=== PATIENT | female | born 1930 | race Caucasian/White ===

== ENCOUNTER 2017-01-11 12:38 | Inpatient (IN) | payer MEDICARE, OTHER ==
[2017-01-11] VITALS (13 sets, daily range): BP systolic 140–196; BP diastolic 63–137; PULSE 60–80; RESP 17–48; O2SAT 86–97
[~2017-01-11] VITALS: Ht 165.1 cm; Wt 126.4 kg
[~2017-01-11 12:38] MED LIST: Albuterol/Ipratropium NEB; CHOL10002 PO; CUB500I IV; DILT120C10 PO; DONE5TAB4 PO; FURO-129 PO; LEVO137T2 PO; LOV100 SUBQ; NITR0.4T6 SL; OMEP-113 PO; POTA20TA7 PO; TRAM50TA2 PO; WARF5TAB7 PO; [UNRECOGNIZED DRUG - CODE] PO
--- NOTE | 2017-01-11 12:54 | ED.REPORT ---
HPI-Dyspnea / Wheezing Date of Service Jan 11, 2017 ED Provider: Asael Oh MD Patient is an 86 year old female anticoagulated on Warfarin with a history of PE , CHF and hypertension who presents to the ED due to shortness of breath onset yesterday. 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 The patient denies chest pain or any other complaints at this time. History of similar symptoms with prior PE. Nursing Notes Stated Complaint: SHORTNESS OF BREATH Chief Complaint: Respiratory Complaints Nursing Notes Reviewed: Yes Allergies: Coded Allergies: Sulfa (Sulfonamide Antibiotics) (Verified Allergy, Severe, Hives, 01/11/17) Shellfish (Verified Adverse Reaction, Mild, Hives, 01/11/17) Scheduled Calcium Carbonate/Vitamin D3 (Calcium 500 + Vit D Caplet) 1 Each Tablet 1 EACH PO DAILY Cyanocobalamin (Vitamin B-12) (Vitamin B-12) 1,000 Mcg Tablet 1,000 MCG PO DAILY Diltiazem ER (Diltiazem ER) 120 Mg Cap.er.12h 120 MG PO BID Donepezil (Aricept) 5 Mg Tablet 10 MG PO HS Fluticasone Propionate (Fluticasone Propionate Nasal) 16 Gm [place].susp 1 SPRAY NA BID Furosemide (Furosemide) 40 Mg Tablet 40 MG PO BID Levothyroxine (Levothyroxine) 200 Mcg Tablet 200 MG PO DAILY Nitroglycerin SL (Nitroglycerin SL) 0.4 Mg Tab.subl 0.4 MG SL DAILY Potassium Chloride ER (Klor-Con M10) 10 Meq Tablet 10 MEQ PO BID Pravastatin (Pravastatin) 80 Mg Tablet 80 MG PO DAILY Warfarin Sodium (Warfarin Sodium) 5 Mg Tablet 7.5 MG PO M,T,,F,SUN Warfarin Sodium (Coumadin) 5 Mg Tablet 10 MG PO W,SAT Scheduled PRN Nitroglycerin SL (Nitroglycerin SL) 0.4 Mg Tab.subl 0.4 MG SL Q5MIN PRN PRN For Chest Pain Tramadol (Tramadol) 50 Mg Tablet 50 MG PO Q6 PRN PRN For Pain General Time Seen by MD: 12:50 Chief Complaint Shortness of breath Hx Obtained From: Patient, Other family... Arrived By: Walk-in Sudden in Onset?: Yes Onset Occurred: 1 day ago Symptom Duration: Since onset Location: : None Recent Healthcare: No recent hospitalization, Recent doctor visit Similar Sx Previous: Yes Past Medical History Past Medical History hypothyroid Cataracts atrial fibrillation congestive heart failure GERD hypertension PE Reports: Stroke Past Surgical History Reports: Appendectomy, Cholecystectomy, Hysterectomy Reports: Knee replacement, Pacemaker insertion Smoking History Never Smoker Social History Alcohol Use: "Social" Drug Use: Denies drug use Ambulatory Status Independent Review of Systems Constitutional: Denies: Chills, Fever Respiratory: Reports: Non-productive cough, Shortness of breath, Wheezing Cardiovascular: Denies: Chest pain Musculoskeletal: Denies: Extremity pain, Extremity swelling Complete sys rev & neg: except as marked. Physical Exam Initial Vital Signs Vital Signs (First) Date Time Temp Pulse Resp B/P Pulse Ox O2 Delivery O2 Flow Rate FiO2 01/11/17 12:41 36.4 60 48 169/80 92 Room Air 01/11/17 13:06 21 Initial VS: Reviewed General/Constitutional: Awake, Alert Neck: Supple, Full range of motion Resp Distress / Stridor: Positive: Resp distress moderate speaking in full sentences wheezes bilateral coarse breath sounds Cardiovascular: Heart rate NL, Regular rhythm, Heart sounds NL ENT: Airway patent, Mucous membranes moist Abdomen: Soft, Non-tender Skin: Atraumatic, Color NL, No rash, Warm, Dry Neurologic: Oriented X3, Speech NL, No motor deficits, No sensory deficits Head / Eyes: Normocephalic, PERRL, EOMI Psychiatric: Affect NL, Mood NL Interpretation & Diagnostics Lab Results Interpretation Result Diagram: 01/11/17 1255 01/11/17 1255 Test 01/11/17 12:50 01/11/17 12:55 01/11/17 15:10 Hold Escobar Top Tube Received (Received) White Blood Count 6.9th/mm3 (3.8-10.1) Red Blood Count 5.58mil/mm3 (3.90-5.20) Hemoglobin 16.4g/dL (12.0-15.6) Hematocrit 50.3% (35.0-46.0) Mean Corpuscular Volume 90.1fL (81-100) Mean Corpuscular Hemoglobin 29.4pg (27.0-35.0) Mean Corpuscular Hemoglobin Concent 32.6% (32.0-37.0) Red Cell Distribution Width 14.9% (12.3-15.4) Platelet Count 194bil/L (150-400) Neutrophils (%) (Auto) 70.1% (40-74) Lymphocytes (%) (Auto) 17.6% (14-46) Monocytes (%) (Auto) 11.1% (4-12) Eosinophils (%) (Auto) 0% (0-5) Basophils (%) (Auto) 0.9% (0-3) Prothrombin Time 18.5sec (8.1-12.5) Prothromb Time International Ratio 1.71ratio Activated Partial Thromboplast Time 32.3sec (22.8-33.0) Sodium Level 139mEq/L (134-144) Potassium Level 4.1mEq/L (3.5-5.2) Chloride Level 101mEq/L (97-108) Carbon Dioxide Level 20mmol/L (18-29) Blood Urea Nitrogen 19mg/dL (8-27) Creatinine 0.84mg/dL (0.57-1.00) Estimat Glomerular Filtration Rate 92mL/min (>59) Glucose Level 112mg/dL (60-99) Lactic Acid Level 2.4mmol/L (0.4-2.0) Calcium Level 9.5mg/dL (8.5-10.1) Total Bilirubin 0.5mg/dL (0.0-1.2) Aspartate Amino Transf (AST/SGOT) 32U/L (0-50) Alanine Aminotransferase (ALT/SGPT) 19U/L (0-32) Alkaline Phosphatase 63U/L (25-165) Troponin T < 0.010ug/L (0.0-0.011) Pro-B-Type Natriuretic Peptide 1708pg/mL (0-738) Total Protein 8.2g/dL (6.4-8.4) Albumin 3.6g/dL (3.4-5.0) ECG Interpretation ECG Interpretation: paced rhythm rate 60 Time: 12:56 Interpreted by: ED physician X-Ray Chest Interpretation Chest Xray Interpretation: IMPRESSION: Increasing left basilar airspace disease is suspicious for pneumonia. Atelectasis may also have this appearance. Dictated by: Isidro Munoz M.D. on 01/11/2017 at 12:37 Approved by: Isidro Munoz M.D. on 01/11/2017 at 12:47 View: Portable, 1 view Interpretation / Wet Read by: Interpret - Radiologist CT Chest Interpretation IMPRESSION: 1. No evidence of pulmonary emboli. 2. Prominent bronchial wall thickening and mild airspace disease within the infrahilar regions (right greater than left) is suspicious for developing pneumonia. 3. Cardiomegaly. 4. Small hiatal hernia. 5. Probable hepatic steatosis. Dictated by: Isidro Munoz M.D. on 01/11/2017 at 14:02 Approved by: Isidro Munoz M.D. on 01/11/2017 at 14:07 Study type: CT pulm angiogram Interpretation / Wet Read by: Interpret - Radiologist Re-Eval/Medical Decision Med Decision/Clinical Course 86-year-old female history of PE on Coumadin, pacemaker, atrial fibrillation presenting with cough and shortness breath 5 days. On arrival she was in moderate to severe respiratory distress. She was placed on BiPAP immediately and felt much better. CT shows bibasilar pneumonia. No evidence of PE. Patient has no risk factors for healthcare associated pneumonia. Her BNP is slightly elevated at 1100. Last echo EF 60 65%. Given Rocephin and azithromycin. Admitted to hospital. Source of Hx: Old records Re-Evaluation/Progress #1: Time of Eval: 13:14 Re-Evaluation/Progress Note: Rechecked patient whose condition is slightly improving. Re-Evaluation/Progress #2: Time of Eval: 14:05 Re-Evaluation/Progress Note: Rechecked patient. Discussed radiology results and diagnosis with patient. The patient understands and agrees to the plan for admittance. All questions were addressed. Consultation : Referral / Consult Name: Vaughn Busby MD Consulted With: Hospitalist Call Returned at: 15:19 Entertainer & Comic: Agrees with eval, Agrees with plan, Accepts admit Counseled Regarding: Diagnosis, Lab results, Need for admission Discharge & Departure Impression: Primary Impression: Pneumonia Additional Impression: Respiratory distress Disposition: ADMITTED TO HOSPITAL Discharge Condition All VS Reviewed: Yes Condition: Stable Referrals: Dai Lovell MD (PCP) Crit Care Except Billable Proc Time Spent: 30-74 minutes Services Performed: Patient management by me, Time spent at bedside, Reviewing test results, Reviewing imaging, Discussing patient care, Documentation in record Scribe Attestation Portions of this note were transcribed by Roseanne Helem and Mahesh Sigala. I, Dr. Oh personally performed the history, physical exam and medical decision-making; I reviewed and confirmed the accuracy of the information in the transcribed note. Signed by: Roseanne Carter and Mahesh Sigala, Scribe, and 15:14 copies to: Dai Lovell MD, Ben M MD Jan 11, 2017 12:54 Alexandra Carter Jan 11, 2017 13:03 MAHESH SIGALA Jan 11, 2017 14:12
[2017-01-11] MEDS ORDERED: Albuterol-Ipratropium 3 mL Inhalation Solution NEB ONE (12:55)
[2017-01-11 13:08] LABS: BASOPHILS % (AUTO) 0.9 % (0-3); EOSINOPHILS % (AUTO) 0 % (0-5); MONOCYTES % (AUTO) 11.1 % (4-12); Mean Corpuscular Hemoglobin 29.4 pg (27.0-35.0); Mean Corpuscular Volume 90.1 fL (81-100); NEUTROPHILS % (AUTO) 70.1 % (40-74); Platelet Count 194 bil/L (150-400)
--- NOTE | 2017-01-11 13:49 | DRSVH ---
PROCEDURE: X-RAY CHEST ONE VIEW, PORTABLE ([id number]) INDICATIONS: DYSPNEA TECHNIQUE: One view of the chest was acquired. COMPARISON: [facility], CR, XR CHEST 2VW, 01/05/2017, 14:54. FINDINGS: Surgical changes and devices: A cardiac defibrillator/pacer apparatus is noted overlying left chest. Lungs and pleura: Aeration of the lungs is similar to the prior study. However, there are increasing areas of linear consolidation within the left infrahilar region. No lobar consolidation, effusion, or pneumothorax is evident. Mediastinum: Mediastinal contours appear normal. Heart size is normal. Bones and chest wall: No suspicious bony lesions. Degenerative changes of the imaged spine and righ t shoulder are noted. Overlying soft tissues appear unremarkable. IMPRESSION: Increasing left basilar airspace disease is suspicious for pneumonia. Atelectasis may al so have this appearance. Dictated by: Isidro Munoz M.D. on 01/11/2017 at 12:37 Approved by: Isidro Munoz M.D. on 01/11/2017 at 12:47
[2017-01-11 13:58] LABS: INR 1.71 ratio
[2017-01-11 14:23] LABS: TROPONIN T < 0.010 ug/L (0.0-0.011)
[2017-01-11] MEDS ORDERED: cefTRIAXone Inj 2,000 MG in Dextrose 5% Minibag Plus 50 ML IV ONE (14:30)
[2017-01-11] MEDS ORDERED: Azithromycin Inj 500 MG in Dextrose 5% 250 ML IV ONE (14:30)
[2017-01-11] MEDS ORDERED: FLUT16SP (14:51)
[2017-01-11] MEDS ORDERED: CALC-78 PO (14:51)
[2017-01-11] MEDS ORDERED: FURO40TA4 PO (14:51)
[2017-01-11] MEDS ORDERED: LEVO200T6 PO (14:52)
[2017-01-11] MEDS ORDERED: NITR0.4T6 SL (14:54)
[2017-01-11] MEDS ORDERED: POTA10TA14 PO (14:54)
[2017-01-11] MEDS ORDERED: PRAV80TA2 PO (14:54)
[2017-01-11] MEDS ORDERED: CYAN10008 PO (14:57)
[2017-01-11] MEDS ORDERED: WARF5TAB PO (14:57)
--- NOTE | 2017-01-11 15:09 | DRSVH ---
PROCEDURE: CT ANGIO CHEST PULMONARY EMBOLISM ([id number]) INDICATIONS: dyspnea h/o PE TECHNIQUE: After the administration of intravenous contrast, 2 mm thick sections acquired from the pulmonary api justino to the posterior costophrenic angles. 3-dimensional maximum intensity projection (MIP) coronal a nd sagittal reformats were then acquired through the thorax. For radiation dose reduction, the follo wing was used: automated exposure control, adjustment of mA and/or kV according to patient size. COMPARISON: , CT, CT ANGIO CHEST PE, 02/02/2016, 14:47. , CT, CHEST ANGIO-PE, 04/04/2015, 18:48. FINDINGS: Image quality: Diagnostic. Pulmonary arteries: Pulmonary arteries are normal in size, and demonstrate no intraluminal filling d efects to suggest central pulmonary embolism. Lungs and pleura: Soft tissue prominence is noted within the perihilar regions bilaterally with corre sponding parabronchial wall thickening, which is more prominent within the right infrahilar region. Adjacent mild ground glass attenuation is noted within this region. A similar appearance to lesser d egree is noted within the left infrahilar region. No pneumothorax is evident. There is no large eff usion. Elevation of the right diaphragm is noted. Mediastinum: The heart is enlarged without a pericardial effusion, particularly noted involving the r ight atrium. Coronary artery atherosclerosis is present. No mediastinal masses present. There are small lymph nodes within the mediastinum. No gloria lymphadenopathy is evident. Small hilar lymph no ronnie are also present. The esophagus is normal in course and caliber and demonstrates a small hiatal hernia. Bones and chest wall: No suspicious bony lesions. Ribs and thoracic spine appear intact throughout. Prominent multilevel degenerative changes of the spine are present. Degenerative changes of the bi lateral shoulders are also noted. Thyroid gland is not enlarged. No axillary or supraclavicular ernst opathy. Abdomen: The imaged portions of the upper abdomen demonstrate a cyst involving the upper portion of t he right kidney which is unchanged since the previous exam and of doubtful significance. The liver i s somewhat hypodense when compared to the spleen. upper abdominal solid organs appear normal in the early arterial phase of enhancement. IMPRESSION: 1. No evidence of pulmonary emboli. 2. Prominent bronchial wall thickening and mild airspace disease within the infrahilar regions (righ t greater than left) is suspicious for developing pneumonia. 3. Cardiomegaly. 4. Small hiatal hernia. 5. Probable hepatic steatosis. Dictated by: Isidro Munoz M.D. on 01/11/2017 at 14:02 Approved by: Isidro Munoz M.D. on 01/11/2017 at 14:07
--- NOTE | 2017-01-11 15:29 | NUR ---
Admit nurse note Admission assessment completed in the ER with daughter's assistance. Per daughter pt. lives 2 doors down with her and is independent with assistance. She cooks for them and sets out their medications, and pt. has a [employer] service. Per daughter pt.'s memory "went downhill" after a "possible stroke" and she has been c/o increasing sob since having PE's several years ago. Pt. is scheduled for pulmonary function tests next week but has not dx or treatment at home at the present. "She and my dad got this cold and it's taking them down now." Pt. is sob at present. Pt. is high risk for sleep apnea, so protocol will be enacted upon arrival to unit. Pt. is currently on SP02 monitoring and oxygen. CHF booklet left in pt. room. Med rec completed per daughter's report. There is some question as to whether pt. is supposed to be on isosorbide mononitrate. It is on her PCP list; however, daughter states she has never had this medication. She just started daily nitroglycerin yesterday.
[2017-01-11 15:31] LABS: APPEARANCE,URINE HAZY (CLEAR,HAZY); COLOR,URINE YELLOW (YELLOW); OCCULT BLOOD,URINE MODERATE (NEGATIVE); UROBILINOGEN,URINE NORMAL (NORMAL)
[2017-01-11] MEDS ORDERED: Ondansetron 2 mg/mL 2 mL Inj IVPUSH PRN (15:45)
[2017-01-11] MEDS ORDERED: Alum-Mag Hydrox-Simeth 30 mL Suspension PO PRN ×2 (15:45→16:00)
[2017-01-11] MEDS ORDERED: 0.9% Sodium Chloride 1,000 ML IV SCH (15:57)
--- NOTE | 2017-01-11 15:57 | PCM.HPMED ---
Subjective Date of Service Jan 11, 2017 Primary Provider: Admitting Physician: Vaughn Busby MD Primary Care Physician: Dai Lovell MD Attending Physician: Vaughn Busby MD Admit Status: From the Emergency Department, Full Admit, [facility] Telemetry Chief Complaint: Pneumonia and acute respiratory failure with hypoxia. History of Present Illness: This is a pleasant 86-year-old female who has had chronic dyspnea primarily on exertion for several months. She has been ill for 4 days with more subacute dyspnea both at rest and with exertion. She has had a cough primarily dry. No fevers or chills. She has had a lot of fatigue as well. She came to the ER today was found to have a left lower lobe infiltrate started on antibiotics. She also had evidence of acute respiratory failure with hypoxia which required BiPAP in the ED. She denies any diaphoresis. No chest pain or palpitations. She has her chronic low-level leg edema which is not worse lately. No recent missed medications, no palpitations or orthopnea. She has had pneumonia vaccine series. She denies pleuritic chest pain. Does not take oxygen at home. She denies a history of smoking, COPD, or asthma. She was noted to have a subtherapeutic pro time today but a CT abdomen was negative for pulmonary embolism. Review of Systems: She denies difficulty with urination, constipation or diarrhea. No abdominal pain or dyspepsia. Also reviewed and otherwise negative except as noted in history of present illness. Allergies Coded Allergies: Sulfa (Sulfonamide Antibiotics) (Verified Allergy, Severe, Hives, 01/11/17) Shellfish (Verified Adverse Reaction, Mild, Hives, 01/11/17) Home Medications Calcium Carbonate/Vitamin D3 (Calcium 500 + Vit D Caplet) 1 Each Tablet 1 EACH PO DAILY Cyanocobalamin (Vitamin B-12) (Vitamin B-12) 1,000 Mcg Tablet 1,000 MCG PO DAILY Diltiazem ER (Diltiazem ER) 120 Mg Cap.er.12h 120 MG PO BID Donepezil (Aricept) 5 Mg Tablet 10 MG PO HS Fluticasone Propionate (Fluticasone Propionate Nasal) 16 Gm [place].susp 1 SPRAY NA BID Furosemide (Furosemide) 40 Mg Tablet 40 MG PO BID Levothyroxine (Levothyroxine) 200 Mcg Tablet 200 MG PO DAILY Nitroglycerin SL (Nitroglycerin SL) 0.4 Mg Tab.subl 0.4 MG SL DAILY Potassium Chloride ER (Klor-Con M10) 10 Meq Tablet 10 MEQ PO BID Pravastatin (Pravastatin) 80 Mg Tablet 80 MG PO DAILY Warfarin Sodium (Warfarin Sodium) 5 Mg Tablet 7.5 MG PO M,T,TH,F,SUN Warfarin Sodium (Coumadin) 5 Mg Tablet 10 MG PO W,SAT Scheduled PRN Nitroglycerin SL (Nitroglycerin SL) 0.4 Mg Tab.subl 0.4 MG SL Q5MIN PRN PRN For Chest Pain Tramadol (Tramadol) 50 Mg Tablet 50 MG PO Q6 PRN PRN For Pain PMH 1. Pulmonary embolism, chronic Coumadin. 2. Atrial fibrillation. 3. Congestive heart failure, EF not known. 4. Gastroesophageal reflux disease 5. Essential hypertension. 6. Hypothyroidism. Family History Positive family history of heart disease. Specifically heart attack. Social History Occupation: tired Hx Alcohol Use: Yes (HARDLY EVER) Hx Substance Use: No Hx Tobacco Use: No Smoking Status: Never Smoker Living Arrangement: with Family Exam Vital Signs Vital Sign - Last Date Time Temp Pulse Resp B/P Pulse Ox O2 Delivery O2 Flow Rate FiO2 01/11/17 15:17 60 21 164/82 94 BiPAP 01/11/17 13:06 21 01/11/17 12:59 37.3 Exam Oriented 3. No distress. Fluent speech. Normal affect. Normal skull. Normal nose and ears. Anicteric sclera, symmetric pupils Oropharynx is unremarkable, no facial droop. Neck is supple, normal thyroid. No adenopathy. Lungs are clear, normal effort rate. She is on BiPAP, she does have some expiratory wheezing. Heart is regular without murmur gallop or rub. Abdomen soft, nondistended or tender. Extremities are free of pedal edema. Good radial and pedal pulses. Skin is free of rash, lesions. No petechiae or ecchymosis. Joints are grossly normal. Cranial nerves are grossly normal. Motor strength is normal in all extremities. Normal muscular tone. Vision is on a BiPAP but is talking comfortably. She does appear to be in no distress. Lab and Diagnostics Result Diagram: 01/11/17 1255 01/11/17 1255 X-Rays, CTs and MRIs Chest CT angiogram: 1. No evidence of pulmonary emboli. 2. Prominent bronchial wall thickening and mild airspace disease within the infrahilar regions (right greater than left) is suspicious for developing pneumonia. 3. Cardiomegaly. 4. Small hiatal hernia. 5. Probable hepatic steatosis. Chest x-ray revealed a left lower lobe infiltrate. Assessment & Plan 1. His community acquired pneumonia, POA. The patient was started on Rocephin and azithromycin. 2. Acute respiratory failure with hypoxia, POA. BiPAP as needed, supplemental oxygen as needed. 3. Pulmonary embolism, chronic. POA. Resume Coumadin. 4. Atrial fibrillation paroxysmal versus chronic. POA. Coumadin and usual medications. 5. Essential hypertension, POA. Usual medications follow clinically. 6. Lactic acidosis, POA. Fluid resuscitation and follow lactates progress 7. Chronic hypothyroidism, POA. Resume usual medications. Advanced level of care discussion also followed. Patient is DO NOT RESUSCITATE, DO NOT INTUBATE she requires support beyond BiPAP. She has except antibiotic support and IV fluid resuscitation. Pain Evaluation: Adequate Pain Control Resuscitation Status: DNR/DNI:Do Not Resuscitate/Intubate Limited Interventions: BiPAP Time spent 50 minutes Vaughn Busby MD Jan 11, 2017 15:57
[2017-01-11] MEDS ORDERED: Polyethylene Glycol (PEG) 17 Gm Powder PO PRN (16:00)
[2017-01-11 16:41] LABS: Magnesium 2.1 mg/dL (1.6-2.6)
--- NOTE | 2017-01-11 17:56 | NUR ---
Admit to CCU Pt arrived to CCU on NC, pt SOB, SpO2 mid-90s. Pt did not tolerate NC for long, back on BiPAP, pt SOB and audibly wheezing. RT at bedside. Pt anxious, prn order for ativan placed. Pt calm at this time without ativan, continue to monitor. IV abx administered. Bedpan to void, stress incontinence present. Denies pain. Tele: Paced in 60s.
[2017-01-11] MEDS: Heparin 5,000 Unit/mL Inj SUBQ SCH (18:09)
[2017-01-12] VITALS (13 sets, daily range): BP systolic 138–150; BP diastolic 64–91; PULSE 60–74; RESP 17–32; O2SAT 92–98
[2017-01-12] MEDS: Heparin 5,000 Unit/mL Inj SUBQ SCH ×4 (00:51→23:45)
[2017-01-12 04:32] LABS: BASOPHILS % (AUTO) 0.7 % (0-3); EOSINOPHILS % (AUTO) 0.2 % (0-5); MONOCYTES % (AUTO) 13.4 % (4-12); Mean Corpuscular Hemoglobin 29.8 pg (27.0-35.0); Mean Corpuscular Volume 90.4 fL (81-100); NEUTROPHILS % (AUTO) 63.4 % (40-74); Platelet Count 163 bil/L (150-400)
--- NOTE | 2017-01-12 06:34 | NUR ---
SOB/Anxiety became very SOB while repositioning in bed, became anxious, gave .5 Mg Ativan IV. ws able to tolerate BiPap mask. Bipap 10/5, 25% FiO2. NS @ 50. V-paced 60's , 70-80 with exertion.
--- NOTE | 2017-01-12 08:38 | PCM.PNMED ---
Subjective Date of Service Jan 12, 2017 Subjective She has been on BiPAP throughout the night and feels fine. She notes that she feels well no dyspnea or chest pain or abdominal pain. No nausea. She is hungry. No diarrhea. She would like off the BiPAP and see how she does. Minimal cough. Overnight events. Exam Vital Signs Vital Sign - Last Date Time Temp Pulse Resp B/P Pulse Ox O2 Delivery O2 Flow Rate FiO2 01/12/17 08:00 36.8 64 32 138/86 94 BiPAP 01/12/17 07:30 25 Intake and Output 01/11/17 01/11/17 01/12/17 Cumulative From/Thru 15:00 23:00 07:00 01/11/17 12:41 - 01/12/17 06:27 Intake Total 0 ml 621 ml 621 ml Output Total 300 ml 300 ml 600 ml Balance -300 ml 321 ml 21 ml Intake Oral 0 ml 0 ml 0 ml IV Total 621 ml 621 ml Output Urine Total 300 ml 300 ml 600 ml Exam Alert and oriented 3, no distress. Fluent speech Anicteric sclera. Lungs are clear with normal rate and effort, she is on BiPAP. She is able talk but difficulty however. Heart is regular without murmur gallop or rub Abdomen soft nontender, flat Extremities are free of edema. Skin is free of rash or lesions. IVs and Medications Medications Reviewed: Medications were reviewed in detail Lab and Diagnostics Result Diagram: 01/12/1740401/12/17404 X-Rays, CTs and MRIs Chest CT angiogram: 1. No evidence of pulmonary emboli. 2. Prominent bronchial wall thickening and mild airspace disease within the infrahilar regions (right greater than left) is suspicious for developing pneumonia. 3. Cardiomegaly. 4. Small hiatal hernia. 5. Probable hepatic steatosis. Chest x-ray revealed a left lower lobe infiltrate. Assessment & Plan 1. Community acquired pneumonia, POA. This is improving. The patient was started on Rocephin and azithromycin and this will continue.. Blood cultures are pending serologies are pending. 2. Acute respiratory failure with hypoxia, POA. This is stable. We will take off BiPAP this morning his supplemental oxygen and see how she does. 3. Pulmonary embolism, chronic. POA. Resume Coumadin. 4. Atrial fibrillation paroxysmal versus chronic. POA. Stable. Coumadin and usual medications. 5. Essential hypertension, POA. Stable. Usual medications follow clinically. 6. Lactic acidosis, POA. Resolved after Fluid resuscitation . 7. Chronic hypothyroidism, POA. Stable. Resume usual medications. Advanced level of care discussion also followed. Patient is DO NOT RESUSCITATE, DO NOT INTUBATE she requires support beyond BiPAP. She has except antibiotic support and IV fluid resuscitation. VTE Mechanical Devices: Intermittant Pneumatic CD Resuscitation Status: DNR/DNI:Do Not Resuscitate/Intubate Limited Interventions: BiPAP Vaughn Busby MD Jan 12, 2017 08:37
[2017-01-12] MEDS: cefTRIAXone Inj 2,000 MG in Dextrose 5% Minibag Plus 50 ML IV SCH (09:12)
[2017-01-12] MEDS: Azithromycin Inj 500 MG in Dextrose 5% w/Vial Mate 250 ML IV SCH (09:56)
--- NOTE | 2017-01-12 10:11 | NUR ---
Social Work- Initial Assessment Data: See Initial Assessment. Pt is a 86 year old female admitted 01/11/17 for pneumonia, respiratory distress per H&P. Pt's insurance is [employer]. Pt's PCP is Dai Lovell MD. SW met with pt at bedside regarding discharge plan, SW role explained. Pt alert and oriented x3. Pt resides in [place] with her , daughter Edith lives nearby. Pt uses a walker at base and receives assistance with chores from a housekeeping company and her daughter assists with meals and medications. Pt does not drive. Pt has no LTC or VA benefits. Pt is unsure of HH or SNF history. Pt's AD/DPOA on file in chart. Pt may benefit from HH RN at discharge, SW to follow up with pt regarding this. F2F in folder if necessary. Pt to discharge home with daughter to transport via POV. SW will continue to follow. Assessment: Pt who receives assistance from her daughter and may benefit from HH RN. Plan: Pt may benefit from HH RN at discharge. SW to follow up with pt regarding this. F2F in folder if necessary. Pt to discharge home with daughter to transport via POV. SW will continue to follow. CARMELA Daniels Addendum: 01/12/17 at 1015 by MOE CARRILLO SS Amended: Links added. Addendum: 01/12/17 at 1108 by MOE CARRILLO SS JYOTI spoke with pt's daughter Edith [phone] by telephone regarding pt's discharge plan. Pt has a history of [facility] RN PT after a PE. Pt also has a history at [facility] for rehab. SW spoke with pt at bedside regarding [facility] RN. Pt and daughter agreeable to this. HH CHOICE LIST PROVIDED. JYOTI explained role of HH RN after discharge. Pt and daughter agreeable to [facility] load blocker. Access given. JYOTI contacted [facility] regarding referral. F2F in folder to be signed. Pt to discharge home with [facility] RN. JYOTI will continue to follow. Jaimie Carrillo, QUANTITATIVE MANAGER
[2017-01-12] MEDS: Albuterol 2.5 mg/3 mL Inhalation Solution NEB PRN ×2 (11:34→21:21)
--- NOTE | 2017-01-12 16:06 | NUR ---
Increased Respiratory Rate/Bipap Pt's respiratory rate increased to 30-32rpm on 5L NC. Pt was diaphoretic. Pt's lungs were coarse with audible wheezing bilaterally. Pt placed back on Bipap with FiO2 25%. Pt's RR 15-20 on Bipap with SAO2 95%. Will continue to monitor. Pt was also administered her daily dose of Furosemide PO 40mg, but has not voided at this time. Addendum: 01/12/17 at 1833 by LAINE PEREZ RN Pt up to [facility], displayed no SOB. Upon getting back to bed pt became very anxious, stated she could not breath and pulled off her Bipap mask. Pt Bipap was placed back on and pt was calmed down, as she became less anxious her breathing improved. O2 sats were maintained above 90 during episode. made aware. Pt given 0.5mg Ativan, 40mg IV push of Lasix, and Barnard catheter was placed. Pt immediately voided 350ml of urine into urometer.
[2017-01-12] MEDS ORDERED: Furosemide 10 mg/mL 4 mL Inj IVPUSH ONE (16:45)
[2017-01-13] VITALS (10 sets, daily range): BP systolic 117–153; BP diastolic 68–98; PULSE 60–72; RESP 16–22; O2SAT 94–99
--- NOTE | 2017-01-13 06:23 | NUR ---
Respiratory Upon assessment lung sounds were wheezy with a few crackles noted and pt stated some SOB. RT paged for breathing treatment and Nursing administered 40mg PO Lasix's. Pt SOB decreased after interventions. Pt placed on Bipap at 25% FiO2 while sleeping with no further complaints of SOB. VSS and Tele Paced 60's and SpO2's 95-98%.
[2017-01-13] MEDS: cefTRIAXone Inj 2,000 MG in Dextrose 5% Minibag Plus 50 ML IV SCH (08:49)
[2017-01-13] MEDS: Heparin 5,000 Unit/mL Inj SUBQ SCH ×3 (08:55→23:40)
[2017-01-13] MEDS: Azithromycin Inj 500 MG in Dextrose 5% w/Vial Mate 250 ML IV SCH ×2 (10:29→12:06)
[2017-01-13] MEDS ORDERED: Furosemide 10 mg/mL 4 mL Inj IVPUSH ONE (11:35)
--- NOTE | 2017-01-13 11:35 | NUR ---
Social Work- Readiness for Discharge Data: EMR reviewed. Pt is on day 2 of hospitalization for pneumonia, respiratory distress per H&P. Pt is not medically stable for discharge, anticipate 1-2 more days. Pt continues to need 2L O2 through nasal cannula. Pt was on BiPAP overnight. Pt's telma is being D/C. Pt's F2F signed and in folder, copy in hard chart. Pt to discharge home with Ysiel HUERTA RN, daughter to transport via POV when medically stable. SW will continue to follow. Assessment: Pt who may benefit from Yisel HUERTA RN. Plan: Pt's F2F signed and in folder, copy in hard chart. Pt to discharge home with Yisel HUERTA RN, daughter to transport via POV when medically stable. SW will continue to follow. CARMELA Daniels
--- NOTE | 2017-01-13 11:36 | PCM.PNMED ---
Subjective Date of Service Jan 13, 2017 Subjective Previous much better. She still has a dry nonproductive cough and wheezing. No chest pain. No nausea vomiting or diarrhea. No abdominal pain. Some very mild leg edema. Her wishes to be home tomorrow for [facility] and she would like to try for her home discharge in the morning. She is opened home oxygen if necessary. No overnight events Exam Vital Signs Vital Sign - Last Date Time Temp Pulse Resp B/P Pulse Ox O2 Delivery O2 Flow Rate FiO2 01/13/17 11:24 60 01/13/17 08:59 36.8 16 97 Nasal Cannula 3.00 01/13/17 07:45 25 Intake and Output 01/12/17 01/12/17 01/13/17 Cumulative From/Thru 15:00 23:00 07:00 01/11/17 12:41 - 01/13/17 06:14 Intake Total 2014 ml 250 ml 2885 ml Output Total 550 ml 2650 ml 3800 ml Balance 1464 ml -2400 ml -915 ml Intake Oral 1397 ml 250 ml 1647 ml IV Total 617 ml 1238 ml Output Urine Total 550 ml 2650 ml 3800 ml # Bowel Movements 1 1 Exam Alert and oriented 3, no distress. Fluent speech Anicteric sclera. Lungs are clear with normal rate and effort, she does have diffuse expiratory wheezing. Heart is regular without murmur gallop or rub Abdomen soft nontender, flat Extremities with 1+ edema. Skin is free of rash or lesions. IVs and Medications Medications Reviewed: Medications were reviewed in detail Lab and Diagnostics Result Diagram: 01/12/175 01/12/17404 X-Rays, CTs and MRIs Chest CT angiogram: 1. No evidence of pulmonary emboli. 2. Prominent bronchial wall thickening and mild airspace disease within the infrahilar regions (right greater than left) is suspicious for developing pneumonia. 3. Cardiomegaly. 4. Small hiatal hernia. 5. Probable hepatic steatosis. Chest x-ray revealed a left lower lobe infiltrate. Assessment & Plan 1. Community acquired pneumonia, POA. This is improving. The patient was started on Rocephin and azithromycin and this will continue.. Blood cultures are pending serologies are pending. 2. Acute respiratory failure with hypoxia, POA. This is stable. We will take off BiPAP this morning his supplemental oxygen and see how she does. 3. Pulmonary embolism, chronic. POA. Resume Coumadin. 4. Atrial fibrillation paroxysmal versus chronic. POA. Stable. Coumadin and usual medications. 5. Essential hypertension, POA. Stable. Usual medications follow clinically. 6. Lactic acidosis, POA. Resolved after Fluid resuscitation . 7. Chronic hypothyroidism, POA. Stable. Resume usual medications. Advanced level of care discussion also followed. Patient is DO NOT RESUSCITATE, DO NOT INTUBATE she requires support beyond BiPAP. She has except antibiotic support and IV fluid resuscitation. VTE Mechanical Devices: Intermittant Pneumatic CD Resuscitation Status: DNR/DNI:Do Not Resuscitate/Intubate Limited Interventions: BiPAP Vaughn Busby MD Jan 13, 2017 11:36
--- NOTE | 2017-01-13 11:51 | NUR ---
ROBINA signed. Jaimie Carrillo MS [employer] D[employer]
[2017-01-13 12:34] LABS: Mean Corpuscular Hemoglobin 29.7 pg (27.0-35.0); Mean Corpuscular Volume 90.5 fL (81-100)
--- NOTE | 2017-01-13 14:42 | NUR ---
Evaluation completed. Please go to "Notes" then click on "Assessments and Notes" (bottom left corner of screen). Then select appropriate discipline tab on top of screen.
--- NOTE | 2017-01-13 19:29 | NUR ---
Activity/Oxygen Pt maintained O2 sats in mid 90s for entire shift with 2L NC. Pt able to get up out of bed and use Bathroom with some Dyspnea but recovered well. Pt spirits up and she is looking forward to the possibility of going home tomorrow if her oxygen needs and respiratory status continue to improve.
[2017-01-14] VITALS (13 sets, daily range): BP systolic 117–135; BP diastolic 63–87; PULSE 60–64; RESP 18–28; O2SAT 96–99
--- NOTE | 2017-01-14 05:53 | NUR ---
Respiratory/Activity Pt not on Bipap this shift. Pt on 2L NC while sleeping and tolerated well. No decline in SpO2 while sleeping. Pt up to BR several times this shift with SBA and FWW. Pt tolerated well. VSS and Tele Vpaced 60's.
[2017-01-14] MEDS: cefTRIAXone Inj 2,000 MG in Dextrose 5% Minibag Plus 50 ML IV SCH (09:22)
[2017-01-14] MEDS: Heparin 5,000 Unit/mL Inj SUBQ SCH ×3 (10:22→23:36)
[2017-01-14] MEDS: Azithromycin Inj 500 MG in Dextrose 5% w/Vial Mate 250 ML IV SCH (10:25)
[2017-01-14] MEDS ORDERED: Furosemide 10 mg/mL 4 mL Inj IVPUSH ONE (10:30)
--- NOTE | 2017-01-14 10:31 | PCM.PNMED ---
Subjective Date of Service Jan 14, 2017 Subjective Little more short of breath. Some wheezing. A dry cough. No chest pain. Her oxygen saturations are staying up on room air. She does feel overall more weak but denies feeling like she is getting tired with her breathing. No constipation. No overnight events. Exam Vital Signs Vital Sign - Last Date Time Temp Pulse Resp B/P Pulse Ox O2 Delivery O2 Flow Rate FiO2 01/14/17 09:29 36.8 64 20 130/63 97 Nasal Cannula 2.00 01/13/17 07:45 25 Intake and Output 01/13/17 01/13/17 01/14/17 Cumulative From/Thru 15:00 23:00 07:00 01/11/17 12:41 - 01/14/17 05:47 Intake Total 347 ml 1930 ml 600 ml 5762 ml Output Total 1100 ml 200 ml 5100 ml Balance 347 ml 830 ml 400 ml 662 ml Intake Oral 1930 ml 600 ml 4177 ml IV Total 347 ml 1585 ml Output Urine Total 1100 ml 200 ml 5100 ml # Voids 1 2 3 # Bowel Movements 1 2 Exam Alert and oriented 3, no distress. Fluent speech Anicteric sclera. Lungs are notable for audible wheezing, expiratory as well as some upper airway rhonchi. She also has increased effort and rate as well as dyspnea with talking. Heart is regular without murmur gallop or rub Abdomen soft nontender, flat Extremities notable for 1+ edema. Skin is free of rash or lesions. IVs and Medications Medications Reviewed: Medications were reviewed in detail Lab and Diagnostics Result Diagram: 01/13/17 1205 01/13/17 1205 X-Rays, CTs and MRIs Chest CT angiogram: 1. No evidence of pulmonary emboli. 2. Prominent bronchial wall thickening and mild airspace disease within the infrahilar regions (right greater than left) is suspicious for developing pneumonia. 3. Cardiomegaly. 4. Small hiatal hernia. 5. Probable hepatic steatosis. Chest x-ray revealed a left lower lobe infiltrate. Assessment & Plan 1. Community acquired pneumonia, POA. This is improving. The patient was started on Rocephin and azithromycin and this will continue.. Blood cultures are pending serologies are pending. She still remained somewhat tenuous from a ventilation standpoint today we will continue to keep her inpatient status for another day at least. 2. Acute respiratory failure with hypoxia, POA. This is stable and slowly improving. No BiPAP overnight. She still has fair amount of wheezing. We will continue to observe with bronchodilators and supplemental oxygen as needed. 3. Pulmonary embolism, chronic. POA. Resume Coumadin. 4. Atrial fibrillation paroxysmal versus chronic. POA. Stable. Coumadin and usual medications. 5. Essential hypertension, POA. Stable. Usual medications follow clinically. 6. Lactic acidosis, POA. Resolved after Fluid resuscitation . 7. Chronic hypothyroidism, POA. Stable. Resume usual medications. Advanced level of care discussion also followed. Patient is DO NOT RESUSCITATE, DO NOT INTUBATE she requires support beyond BiPAP. She has accepted antibiotic support and IV fluid resuscitation. VTE Mechanical Devices: Intermittant Pneumatic CD Resuscitation Status: DNR/DNI:Do Not Resuscitate/Intubate Limited Interventions: BiPAP Vaughn Busby MD Jan 14, 2017 10:31
[2017-01-14 10:39] LABS: Mean Corpuscular Hemoglobin 29.8 pg (27.0-35.0); Mean Corpuscular Volume 90.3 fL (81-100)
[2017-01-14 11:01] LABS: Magnesium 1.9 mg/dL (1.6-2.6)
--- NOTE | 2017-01-14 14:16 | DRSVH ---
PROCEDURE: X-RAY CHEST ONE VIEW, PORTABLE ([id number]) INDICATIONS: dyspnea TECHNIQUE: One view of the chest was acquired. COMPARISON: [facility], CT, CT ANGIO CHEST PE, 01/11/2017, 14:34. [facility] , CR, XR CHEST 2VW, 01/05/2017, 14:54. [facility], CR, XR CHEST 1VW (PORTABLE), 01/11/2017 , 12:57. FINDINGS: Surgical changes and devices: Cardiac pacemaker. Lungs and pleura: Subtle left basilar infiltrate suspicious for developing pneumonia. No pleural effu sions or pneumothorax. Mediastinum: Mediastinal contours appear normal. Heart size is normal. Bones and chest wall: No suspicious bony lesions. Overlying soft tissues appear unremarkable. IMPRESSION: Subtle left basilar infiltrate is decreased for developing pneumonia. Dictated by: Kaylie Medellin M.D. on 01/14/2017 at 14:08 Approved by: Kaylie Medellin M.D. on 01/14/2017 at 14:15
--- NOTE | 2017-01-14 17:27 | NUR ---
Respiratory Upon morning assessment pt's disposition and color appeared diminished from previous day. Pt stated that she felt "off" today. Pt sats mid 90s on RA, as the shift progressed pt had increasing work of breathing, she became diaphoretic and demonstrated pursed lip breathing, her RR bina to low 30s. MD aware. Pt was placed back on Bipap. MD ordered an IV push 40mg of Lasix. Sats continue to be in mid 90s, RR mid 20s. Will continue to monitor.
[2017-01-15] VITALS (10 sets, daily range): BP systolic 130–154; BP diastolic 66–83; PULSE 60–65; RESP 17–24; O2SAT 95–98
--- NOTE | 2017-01-15 05:34 | NUR ---
Respiratory status Patient up to BSC to void, very short of breath following this, RR high 20s, accessory muscles use. Patient placed on bipap. RT in room to assess patient. Patient has a non productive cough. Patient able to rest after bipap is placed. Continuous pulse ox on. Patient has occasional episodes of SpO2 in the mid 80s while sleeping, recovers to the 90s spontaneously. Lung sounds with crackles and rhonchi.
[2017-01-15] MEDS: Heparin 5,000 Unit/mL Inj SUBQ SCH ×2 (08:32→17:13)
[2017-01-15] MEDS: Azithromycin Inj 500 MG in Dextrose 5% w/Vial Mate 250 ML IV SCH (08:33)
[2017-01-15] MEDS: cefTRIAXone Inj 2,000 MG in Dextrose 5% Minibag Plus 50 ML IV SCH (08:33)
[2017-01-15] MEDS ORDERED: Furosemide 10 mg/mL 4 mL Inj IVPUSH ONE (10:15)
[2017-01-15 10:43] LABS: Mean Corpuscular Hemoglobin 29.5 pg (27.0-35.0); Mean Corpuscular Volume 90.3 fL (81-100)
--- NOTE | 2017-01-15 10:43 | PCM.PNMED ---
Subjective Date of Service Jan 15, 2017 Subjective She is still short of breath and has a lot of wheezing. She was on BiPAP overnight and does feel fatigued. No chest pain, palpitations. No nausea, vomiting or diaphoresis. No diarrhea. No abdominal pain. No overnight events Exam Vital Signs Vital Sign - Last Date Time Temp Pulse Resp B/P Pulse Ox O2 Delivery O2 Flow Rate FiO2 01/15/17 08:00 Supplement Oxygen CPAP/BIPAP 01/15/17 07:34 36.8 60 24 148/77 97 5.00 01/14/17 23:30 25 Intake and Output 01/14/17 01/14/17 01/15/17 Cumulative From/Thru 15:00 23:00 07:00 01/11/17 12:41 - 01/15/17 05:44 Intake Total 318 ml 320 ml 400 ml 6800 ml Output Total 300 ml 350 ml 5750 ml Balance 318 ml 20 ml 50 ml 1050 ml Intake Oral 320 ml 400 ml 4897 ml IV Total 318 ml 1903 ml Output Urine Total 300 ml 350 ml 5750 ml # Voids 3 # Bowel Movements 1 3 Exam Alert and oriented 3, no distress. Fluent speech Anicteric sclera. Lungs with normal rate and effort however she does have dyspnea with talking and expiratory as well as inspiratory wheezing. Heart is regular without murmur gallop or rub Abdomen soft nontender, flat Extremities are with 1+ edema. Skin is free of rash or lesions. IVs and Medications Medications Reviewed: Medications were reviewed in detail Lab and Diagnostics Result Diagram: 01/14/17 0350 01/13/17 1205 X-Rays, CTs and MRIs Chest CT angiogram: 1. No evidence of pulmonary emboli. 2. Prominent bronchial wall thickening and mild airspace disease within the infrahilar regions (right greater than left) is suspicious for developing pneumonia. 3. Cardiomegaly. 4. Small hiatal hernia. 5. Probable hepatic steatosis. Chest x-ray revealed a left lower lobe infiltrate. Assessment & Plan #. Community acquired pneumonia, POA. This is improving, but slowly.. The patient was started on Rocephin and azithromycin and this will continue.. Blood cultures are pending serologies are pending. She still remained somewhat tenuous from a ventilation standpoint today we will continue to keep her inpatient status for another day at least. #. Acute respiratory failure with hypoxia, POA. This is stable and slowly improving. She used BiPAP overnight. She still has fair amount of wheezing. We will continue to observe with bronchodilators and supplemental oxygen as needed. #. Possible acute on chronic diastolic heart failure, new. This may related to IV fluids with her antibiotics. She was given diuresis. Given more Lasix today. A 2-D echo has been obtained and the report is pending. #. Pulmonary embolism, chronic. POA. Resume Coumadin. #. Atrial fibrillation paroxysmal versus chronic. POA. Stable. Coumadin and usual medications. #. Essential hypertension, POA. Stable. Usual medications follow clinically. #. Lactic acidosis, POA. Resolved after Fluid resuscitation . #. Chronic hypothyroidism, POA. Stable. Resume usual medications. Advanced level of care discussion also followed. Patient is DO NOT RESUSCITATE, DO NOT INTUBATE she requires support beyond BiPAP. She has accepted antibiotic support and IV fluid resuscitation. VTE Mechanical Devices: Intermittant Pneumatic CD Resuscitation Status: DNR/DNI:Do Not Resuscitate/Intubate Limited Interventions: BiPAP Vaughn Busby MD Jan 15, 2017 10:43
--- NOTE | 2017-01-15 10:46 | DRSVH ---
PROCEDURE: X-RAY CHEST ONE VIEW, PORTABLE ([id number]) INDICATIONS: dyspnea TECHNIQUE: One view of the chest was acquired. COMPARISON: [facility], CR, XR CHEST 1VW (PORTABLE), 01/14/2017, 11:58. FINDINGS: Surgical changes and devices: Stable positioning of the single chamber lead cardiac pacemaker. Lungs and pleura: No pleural effusions or pneumothorax. Medial bibasilar airspace opacity is presen t not significantly changed. Mediastinum: Mediastinal contours appear normal. Heart size is normal. Bones and chest wall: No suspicious bony lesions. Overlying soft tissues appear unremarkable. IMPRESSION: Bibasilar atelectasis versus low-grade aspiration or pneumonia not significantly changed . Dictated by: Manish Ortez [facility] Interpreted: Aleks Davis MD on 01/15/2017 at 10:45 Transcribed by: SHYAM on 01/15/2017 at 10:46 Approved by: Aleks Davis M.D. on 01/15/2017 at 11:00
--- NOTE | 2017-01-15 11:44 | DRSVH ---
[facility] [address] [place] [address] Echocardiogram Report Name: ANGELITA RANDHAWA HStudy Date: 01/15/2017 Height: 60 in Hospital Exam Location: [facility] Weight: 264 lb Gender: Female BSA: 2.1 m2 : 1930 Age: 86 yrs BP: 149/63 mm Hg Reason For Study: Pneumonia Ordering Physician: HOSPITALIST CHRISTIANerformed By: Lina Saunders Referring Physician: Dr. Asael Matson Interpretation Summary The ejection fraction is estimated to be 60-65%. There is severe biatrial enlargement. There is trace mitral regurgitation. There is no hemodynamically significant valvular aortic stenosis. The right ventricular systolic pressure is estimated at 43 mmHg assuming a right atrial pressure of 8 mm Hg. Procedure: A two-dimensional transthoracic echocardiogram with color flow and Doppler was performed. The study quality was technically adequate. Comparison is made with the echocardiogram of 09-02-15. The patient was in normal sinus rhythm during the exam. Left Ventricle: The left ventricle is normal in size, wall thickness, and systolic function without any focal wall motion abnormalities. The ejection fraction is estimated to be 60-65%. There are no focal wall motion abnormalities. Right Ventricle: The right ventricle is normal size. The right ventricular systolic function is normal. Atria: The left atrium is severely dilated. There is severe biatrial enlargement. The right atrium is severely dilated. The interatrial septum is intact with no evidence for an atrial septal defect. Mitral Valve: The mitral valve leaflets appear mildly thickened, but open well. There is mild mitral annular calcification. There is trace mitral regurgitation. Aortic Valve: There is mild aortic valve sclerosis. The peak aortic velocity is 2.2 m/sec. The aortic valve mean gradient is 11 mmHg. There is no hemodynamically significant valvular aortic stenosis. There is mild aortic regurgitation. Tricuspid Valve: The tricuspid valve leaflets are thin and pliable. There is mild tricuspid regurgitation. The right ventricular systolic pressure is estimated at 43 mmHg assuming a right atrial pressure of 8 mm Hg. Compared to the prior echo exam, there has been an increase in the severity of pulmonary hypertension. Pulmonic Valve: The pulmonic valve is not well visualized. Great Vessels: The aortic root is normal size. The dimensions of the ascending aorta are normal. The IVC is dilated (diameter is greater than 2.1 cm) yet it collapses greater than 50% with a sniff. This suggests a right atrial pressure of 8 mm Hg. Pericardium/ Pleura There is no pericardial effusion. There is no pleural effusion. MMode/2D Measurements & Calculations LVIDd: 5.0 cm LA dimension: 5.3 cm RA long axis AoV Opening LVIDs: 3.0 cm FS: 40.7 % LA A2 area: 29.0 cm RA area Ao root diam IVSd: 1.1 cm LA A4 area: 33.6 cm LVPWd: 0.97 cm LA length (vol) : 32.8 cm Aortic Jxn: 2.6 cm RA vol asc Aorta Diam LA vol: 117.1 ml : 131.ml LA vol index RA Ao Arch Diam (Prox : 62.7 mm/ Trans): 2.9 cm RVDd major IVC diam: 2.2 cm : 5.4 cm LV shaffer. diameter/BSA LV sys. diameter/BSA RVD1 (basal) RVD2 (mid): 3.7 cm (cm/m^2): 2.4 (cm/m^2): 1.4 Doppler Measurements & Calculations Ao V2 max MV P1/2t: 96.3 msec Med Peak E' Chano TR max chano : 222.2 cm/sec : 295.5 cm/sec Ao max PG Lat Peak E' Chano TR max PG : 19.8 mmHg : 34.9 mmHg Ao mean PG PA V2 max : 11.1 mmHg : 103.7 cm/sec LVOT Max Chano PA mean PG : 99.6 cm/sec : 2.1 mmHg sev ratio: 0.42 AI P1/2t : 768.7 msec AI dec slope : 177.2 cm/s2c MV V2 mean MV P1/2t max chano Ao V2 mean LV V1 max PG : 47.9 cm/sec : 155.7 cm/sec MV mean PG Ao V2 VTI: 47.6 cm LV V1 VTI MVA(P1/2t): 2.3 cm2 : 19.8 cm MV V2 VTI: 25.5 cm PA V2 mean : 63.7 cm/sec Electronically signed by: Jeremy Bernstein on Reading Physician:01/15/2017 11:43 AM
[2017-01-15] MEDS: Albuterol 1.25 mg/3 mL Inhalation Solution NEB SCH ×3 (12:30→20:24)
--- NOTE | 2017-01-15 17:44 | NUR ---
Respiratory/BM Pt on 4L NC most of shift with sats in the mid to high 90s, RR low 20s. Pt states she is SOB with exertion and gets visibly tachypneic and SOB when getting to BSC. She is comfortable breathing with no distress while lying in bed. Pt had x2 BM (fairly loose) during shift. Wearing brief with urine incontience throughout shift as well. Frequent rounding, and brief checks. Pt able to turn with minimal help.
[2017-01-16] VITALS (14 sets, daily range): BP systolic 122–165; BP diastolic 57–94; PULSE 60–62; RESP 16–22; O2SAT 92–100
[2017-01-16] MEDS: Albuterol 1.25 mg/3 mL Inhalation Solution NEB SCH ×7 (00:12→23:52)
[2017-01-16] MEDS: Heparin 5,000 Unit/mL Inj SUBQ SCH ×2 (01:08→09:17)
--- NOTE | 2017-01-16 04:27 | NUR ---
Respiratory Pt on 4L NC at beginning of shift, denies dyspnea at rest. Marked rhonchi and wheezes to respiratory assessment; congested cough with pt reporting sputum swallowed. At HS, pt agreeable to attempt BiPAP at 25% FiO2; tolerated well until approximately 0100, when pt requested removal. Pt switched back to 4L NC, SpO2 maintaining approx. 94-98% throughout shift. VSS, tele paced 60s, ongoing brief changes for urinary and bowel incontinence. Skin care given for perineal breakdown.
[2017-01-16] MEDS: cefTRIAXone Inj 2,000 MG in Dextrose 5% Minibag Plus 50 ML IV SCH (09:07)
[2017-01-16] MEDS: Azithromycin Inj 500 MG in Dextrose 5% w/Vial Mate 250 ML IV SCH (09:08)
[2017-01-16] MEDS ORDERED: Furosemide 10 mg/mL 4 mL Inj IVPUSH ONE (10:35)
--- NOTE | 2017-01-16 10:38 | PCM.PNMED ---
Subjective Date of Service Jan 16, 2017 Subjective Although improving she is still quite short of breath. She still gets quite dyspneic when moving to the commode. Minimal cough. No chest pain. Some diaphoresis this morning. She did not have to use BiPAP at all last night which is an improvement. No nausea or emesis. No abdominal pain or diarrhea. No overnight events Exam Vital Signs Vital Sign - Last Date Time Temp Pulse Resp B/P Pulse Ox O2 Delivery O2 Flow Rate FiO2 01/16/17 08:28 60 18 98 Nasal Cannula 4.00 01/16/17 07:59 37.0 136/60 01/16/17 00:12 25 Intake and Output 01/15/17 01/15/17 01/16/17 Cumulative From/Thru 15:00 23:00 07:00 01/11/17 12:41 - 01/16/17 06:16 Intake Total 1687 ml 123 ml 8610 ml Output Total 600 ml 6350 ml Balance 1087 ml 123 ml 2260 ml Intake Oral 1308 ml 6205 ml IV Total 379 ml 123 ml 2405 ml Output Urine Total 600 ml 6350 ml # Voids 3 # Bowel Movements 3 Exam Alert and oriented 3, no distress. Fluent speech Anicteric sclera. Lungs are for expiratory wheezing diffusely. She also has some dyspnea with talking. Heart is regular without murmur gallop or rub Abdomen soft nontender, flat Extremities are with 1+ edema. Skin is free of rash or lesions. IVs and Medications Medications Reviewed: Medications were reviewed in detail Lab and Diagnostics Result Diagram: 01/15/17 1035 01/15/17 1035 X-Rays, CTs and MRIs Chest CT angiogram: 1. No evidence of pulmonary emboli. 2. Prominent bronchial wall thickening and mild airspace disease within the infrahilar regions (right greater than left) is suspicious for developing pneumonia. 3. Cardiomegaly. 4. Small hiatal hernia. 5. Probable hepatic steatosis. Chest x-ray revealed a left lower lobe infiltrate. Cardiac Echo Impressions nterpretation Summary The ejection fraction is estimated to be 60-65%. There is severe biatrial enlargement. There is trace mitral regurgitation. There is no hemodynamically significant valvular aortic stenosis. The right ventricular systolic pressure is estimated at 43 mmHg assuming a right atrial pressure of 8 mm Hg. Assessment & Plan #. Community acquired pneumonia, POA. This is improving, but slowly. The patient was started on Rocephin and azithromycin and this will continue.. Blood cultures are pending serologies are negative. She still remained somewhat tenuous from a ventilation standpoint today we will continue to keep her inpatient status for another day at least. Hopefully she will require no further BiPAP. #. Acute respiratory failure with hypoxia, POA. This is stable and slowly improving. She used BiPAP overnight. She still has fair amount of wheezing. We will continue to observe with bronchodilators and supplemental oxygen as needed. #. Possible acute on chronic diastolic heart failure, new. This may related to IV fluids with her antibiotics. She was given diuresis. Given more Lasix today. A 2-D echo has been obtained reveals fairly normal heart function and no significant valvular disease. I believe she may have become somewhat fluid overloaded from her IV antibiotics and so on. We will give dose of IV Lasix today and continue to follow clinically. #. Pulmonary embolism, chronic. POA. Resume Coumadin. She has been off for several days, we will check INR and start bridging Lovenox. #. Atrial fibrillation paroxysmal versus chronic. POA. Stable. Coumadin with bridging Lovenox and usual medications. #. Essential hypertension, POA. Stable. Usual medications follow clinically. #. Lactic acidosis, POA. Resolved after Fluid resuscitation . #. Chronic hypothyroidism, POA. Stable. Resume usual medications. Advanced level of care discussion also followed. Patient is DO NOT RESUSCITATE, DO NOT INTUBATE she requires support beyond BiPAP. She has accepted antibiotic support and IV fluid resuscitation. He may be old to be discharged home with home health services on January 17. VTE Mechanical Devices: Intermittant Pneumatic CD Resuscitation Status: DNR/DNI:Do Not Resuscitate/Intubate Limited Interventions: BiPAP Vaughn Busby MD Jan 16, 2017 10:38
[2017-01-16 11:20] LABS: INR 1.06 ratio
--- NOTE | 2017-01-16 14:44 | NUR ---
oxygenation/mobility/plan Pt has tolerated 4L NC all day satting 90-95%. Unable to wean at this time. Physical therapy worked with pt, see note. Up to chair BID pt was a slow and careful 1 P assist. Plan to stay in the hospital, wean O2 as tolerated, and increase mobility as tolerated.
--- NOTE | 2017-01-16 14:52 | NUR ---
Evaluation completed. Please go to "Notes" then click on "Assessments and Notes" (bottom left corner of screen). Then select appropriate discipline tab on top of screen.
--- NOTE | 2017-01-16 16:20 | NUR ---
Social Work- Readiness for Discharge Data: EMR reviewed. Pt is on day 5 of hospitalization for pneumonia, respiratory distress per H&P. Pt is not medically stable for discharge, anticipate 1-2 more days. Pt is SBA ambulating to BSC. PT has cleared pt for home. Pt's F2F signed and in folder, copy in hard chart. Pt to discharge home with Yisel HUERTA RN, daughter to transport via POV when medically stable. SW will continue to follow. Assessment: Pt who may benefit from Yisel HUERTA RN. Plan: Pt's F2F signed and in folder, copy in hard chart. Pt to discharge home with Yisel HUERTA RN, daughter to transport via POV when medically stable. SW will continue to follow. Jaimie Carrillo MSW
[2017-01-16] MEDS: Nystatin 100,000 Unit/Gm 15 Gm Powder TOPICAL SCH (22:54)
[2017-01-17] VITALS (9 sets, daily range): BP systolic 129–153; BP diastolic 54–73; PULSE 60–64; RESP 18–22; O2SAT 94–100
[2017-01-17 03:34] LABS: INR 1.07 ratio
[2017-01-17] MEDS: Albuterol 1.25 mg/3 mL Inhalation Solution NEB SCH ×3 (03:46→13:55)
--- NOTE | 2017-01-17 06:16 | NUR ---
Skin Care / Hollis At HS, pt incontinent of urine and slight stool; brief changed and skin care administered. Skin breakdown worsening per prior assessments, with increase in areas of maceration, skin peeling, and new rashes forming. MD sauceda, orders obtained for nystatin powder and hollis catheter placement. Hollis placed at approx. 2300. VSS. Pt on 4L NC throughout shift; no use of BiPAP. SpO2 95-98% throughout shift. Tele paced 60s.
[2017-01-17] MEDS: Azithromycin Inj 500 MG in Dextrose 5% w/Vial Mate 250 ML IV SCH (07:37)
[2017-01-17] MEDS: cefTRIAXone Inj 2,000 MG in Dextrose 5% Minibag Plus 50 ML IV SCH (07:37)
[2017-01-17] MEDS: Nystatin 100,000 Unit/Gm 15 Gm Powder TOPICAL SCH ×2 (07:38→14:26)
--- NOTE | 2017-01-17 11:24 | PCM.PHAPRO ---
Progress Date of Service: Jan 17, 2017 Pneumonia and acute respiratory failure with hypoxia. Warfarin dosing per pharmacy Indication: atrial fibrillation INR goal: 2-3 Home warfarin dose: 10 mg on Sundays and 7.5 mg on all other days of the week Pertinent info: - Warfarin resumed 01/16 after being held. - Patient is therapeutically anticoagulated with Lovenox 120 mg BID. Date -Jan 17-Dec INR 1.06 1.07 INR change 0.01 Warf Dose 7.5 XXXX INR is subtherapeutic but will continue home dose as patient is anticoagulated with Lovenox. Give warfarin 7.5 mg PO this evening at 1700. Pharmacy to continue to monitor and dose warfarin daily. Thank you, Benine Crowell Pharmacist Bennie Crowell Jan 17, 2017 11:24
--- NOTE | 2017-01-17 13:47 | NUR ---
Social Work: Discharge Data: Pt is on day 6 of hospitalization. EMR reviewed. states pt will d/c today. Yisel HUERTA notified, access previously given, they have signed F2F. No further d/c planning needs at this time. B[employer]IE [employer]KER will continue to follow if needs arise. Assessment: Pt who is independent at baseline. Plan: Pt will d/c home via POV today with Yisel HUERTA RN. No further d/c planning needs at this time. B[employer] DIE MAKER will continue to follow if needs arise. CARMELA Lane
--- NOTE | 2017-01-17 14:14 | PCM.DIMED ---
Discharge Instructions Date of Service Jan 17, 2017 Dates of Hospitalization Jan 11, 2017 at 15:24 Discharge Diagnosis Discharge Diagnosis Acute respiratory failure with hypoxia; Pneumonia; atrial fibrillation with anticoagulation Medication Instructions Resume your usual medications, including your warfarin. Diet Low fat, Low Sodium Activity No restrictions, Other (ambulate as tolerated.) Call your provider Shortness of breath Patient Instructions Your breathing will be improved if you ambulate or sit upright as much as possible. He should expect to have a mild cough, reduced appetite and low energy for several more days. Your antibiotics are complete. Your INR level has dropped below your goal of 2- 3. Should resume your usual dose of warfarin and have your INR checked within 1 week. Follow-up Provider: Dai Lovell MD Follow-up with PCP in: 1 week (call for a posthospitalization follow-up visit with INR check) Mainor Magallanes MD Jan 17, 2017 14:14
--- NOTE | 2017-01-17 16:18 | NUR ---
Pt discharged at 1615hrs Pt discharged home with daughter. Instructions given both written and verbal. Pt has F/U appt in 2 days with PCP. Pt was 97% sats on room air today, she was a little dyspneic on exertion and had occ cough. Otherwise VS stable.
--- NOTE | 2017-01-17 16:39 | NUR ---
hollis removed prior to discharge. hollis was removed and pt was able to void prior to discharge.
[2017-01-17] MEDS ORDERED: Warfarin 5 MG, Warfarin 2.5 MG PO ONE ×2 (17:00)
--- NOTE | 2017-01-17 19:06 | PCM.DC.MED ---
Discharge Summary Date of Service Jan 17, 2017 Dates of Hospitalization Date of Hospital Admission Jan 11, 2017 at 15:24 Date of Discharge: Jan 17, 2017 Providers: Admitting Physician: Vaughn Busby MD Primary Care Physician: Dai Lovell MD Attending Physician: Vaughn Busby MD Diagnosis at Time of Discharge Diagnosis at Time of Discharge Acute respiratory failure with hypoxia; Pneumonia; atrial fibrillation with anticoagulation Procedures XRay, CTs & MRIs PROCEDURE: CT ANGIO CHEST PULMONARY EMBOLISM ([id number]) IMPRESSION: 1. No evidence of pulmonary emboli. 2. Prominent bronchial wall thickening and mild airspace disease within the infrahilar regions (right greater than left) is suspicious for developing pneumonia. 3. Cardiomegaly. 4. Small hiatal hernia. 5. Probable hepatic steatosis. Dictated by: Isidro Munoz M.D. on 01/11/2017 at 14:02 PROCEDURE: X-RAY CHEST ONE VIEW, PORTABLE ([id number]) IMPRESSION: Bibasilar atelectasis versus low-grade aspiration or pneumonia not significantly changed. Dictated by: Manish Ortez [facility] Interpreted: Aleks Davis MD on 01/15/2017 at 10:45 . Cardiac Echo Impression Interpretation Summary The ejection fraction is estimated to be 60-65%. There is severe biatrial enlargement. There is trace mitral regurgitation. There is no hemodynamically significant valvular aortic stenosis. The right ventricular systolic pressure is estimated at 43 mmHg assuming a right atrial pressure of 8 mm Hg. Brief History History of Present Illness (per admission note): This is a pleasant 86-year-old female who has had chronic dyspnea primarily on exertion for several months. She has been ill for 4 days with more subacute dyspnea both at rest and with exertion. She has had a cough primarily dry. No fevers or chills. She has had a lot of fatigue as well. She came to the ER today was found to have a left lower lobe infiltrate started on antibiotics. She also had evidence of acute respiratory failure with hypoxia which required BiPAP in the ED. She denies any diaphoresis. No chest pain or palpitations. She has her chronic low-level leg edema which is not worse lately. No recent missed medications, no palpitations or orthopnea. She has had pneumonia vaccine series. She denies pleuritic chest pain. Does not take oxygen at home. She denies a history of smoking, COPD, or asthma. She was noted to have a subtherapeutic protime. Hospital Course #. Community acquired pneumonia, POA. She improved gradually, but slowly. She completed a five-day course of Rocephin and azithromycin. She voiced a desire to go home as soon as feasible. Blood cultures are pending serologies are negative. She was counseled that she may experience some persistent cough and reduced energy, which is expected resolved within 2 weeks. #. Acute respiratory failure with hypoxia, POA. This is stable and slowly improving. She required BiPAP. She had wheezing and was treated with with bronchodilators and supplemental oxygen as needed. #. Possible acute on chronic diastolic heart failure, new. Initially treated with IV Lasix today, but echocardiogram and clinical course do not suggest acute congestive heart failure. #. History of Pulmonary embolism, chronic. POA. Resume Coumadin. She has been off for several days, with subtherapeutic INR. She received bridging Lovenox. Her chads 2 vasc score is 5, but family seemed slightly confused at the prospect of subcutaneous Lovenox home injections. She resumed warfarin 2 days prior to discharge. Decision was made for no bridging Lovenox at home but to administer 10 mg warfarin on day of discharge and resume her normal warfarin schedule. #. Atrial fibrillation paroxysmal versus chronic. POA. Stable. Anticoagulation as above. #. Essential hypertension, POA. Stable. Usual medications follow clinically. #. Lactic acidosis, POA. Resolved after Fluid resuscitation . #. Chronic hypothyroidism, POA. Stable. Resume usual medications. #. Advanced level of care discussion also followed. Patient is DO NOT RESUSCITATE, DO NOT INTUBATE she requires support beyond BiPAP. . Exam Vital Signs (Last) Date Time Temp Pulse Resp B/P Pulse Ox O2 Delivery O2 Flow Rate FiO2 01/17/17 13:56 60 18 97 Room Air 01/17/17 12:03 36.9 136/64 01/17/17 09:10 3.00 01/16/17 00:12 25 Exam General: Obese elderly woman in no acute distress HEENT: sclerae anicteric, oral mucosa moist Neck: no apparent JVD Chest: Scattered rhonchi, no wheezing, otherwise clear to auscultation Cardiac: S1S2, no murmur Abdomen: BS normal, non-tender Extremities: No pitting edema Neuro: A&O, cranial nerves symmetric, motor strength and coordination normal Test 01/11/17 12:55 01/11/17 15:10 01/11/17 15:25 01/12/17 04:05 Activated Partial Thromboplast Time 32.3sec (22.8-33.0) Hemoglobin A1c 6.0% (4.8-5.6) Troponin T < 0.010ug/L (0.0-0.011) Urine Color Yellow (YELLOW) Urine Appearance Hazy (CLEAR,HAZY) Urine pH 6.0 (5.0-8.0) Urine Specific [place] 1.020 (1.003-1.035) Urine Protein 100mg/dL (NEG,TRACE) Urine Glucose (UA) Negativemg/dL (NEGATIVE) Urine Ketones Negativemg/dL (NEGATIVE) Urine Occult Blood Moderate (NEGATIVE) Urine Nitrite Negative (NEGATIVE) Urine Bilirubin Negative (NEGATIVE) Urine Urobilinogen Normalmg/dL (NORMAL) Urine Leukocyte Esterase Negative (NEGATIVE) Urine RBC 0-2/hpf (0-2) Urine WBC 0-5/hpf (0-5) Urine Epithelial Cells Occasional/hpf (NONE-MOD) Urine Crystals None seen (NONE SEEN) Urine Bacteria Many/hpf (NONE-FEW) Urine Hyaline Casts None/lpf (NONE) Urine Granular Casts None seen (NONE SEEN) Urine Waxy Casts None seen (NONE SEEN) Urine Red Blood Cell Casts None seen (NONE SEEN) Urine White Blood Cell Casts None seen (NONE SEEN) Urine Mucus None seen (None Seen) Urine Trichomonas None seen (NONE SEEN) Urine Yeast None (NONE SEEN) Urinalysis Comment None Urine Culture Reflexed Indicated Urine Legionella pneumophilia Ag Negative (Negative) Lactic Acid Level 1.4mmol/L (0.4-2.0) Hold Escobar Top Tube Received (Received) Neutrophils (%) (Auto) 63.4% (40-74) Lymphocytes (%) (Auto) 22.1% (14-46) Monocytes (%) (Auto) 13.4% (4-12) Eosinophils (%) (Auto) 0.2% (0-5) Basophils (%) (Auto) 0.7% (0-3) Test 01/14/17 03:50 01/15/17 10:35 01/17/17 03:05 Magnesium Level 1.9mg/dL (1.6-2.6) Pro-B-Type Natriuretic Peptide 622.2pg/mL (0-738) Procalcitonin 0.06ng/mL (0.00-0.08) White Blood Count 13.1th/mm3 (3.8-10.1) Red Blood Count 5.35mil/mm3 (3.90-5.20) Hemoglobin 15.8g/dL (12.0-15.6) Hematocrit 48.3% (35.0-46.0) Mean Corpuscular Volume 90.3fL (81-100) Mean Corpuscular Hemoglobin 29.5pg (27.0-35.0) Mean Corpuscular Hemoglobin Concent 32.7% (32.0-37.0) Red Cell Distribution Width 14.0% (12.3-15.4) Platelet Count 212bil/L (150-400) Sodium Level 138mEq/L (134-144) Potassium Level 4.1mEq/L (3.5-5.2) Chloride Level 97mEq/L (97-108) Carbon Dioxide Level 25mmol/L (18-29) Blood Urea Nitrogen 15mg/dL (8-27) Creatinine 0.70mg/dL (0.57-1.00) Estimat Glomerular Filtration Rate 114mL/min (>59) Glucose Level 153mg/dL (60-99) Calcium Level 8.4mg/dL (8.5-10.1) Total Bilirubin 0.4mg/dL (0.0-1.2) Aspartate Amino Transf (AST/SGOT) 33U/L (0-50) Alanine Aminotransferase (ALT/SGPT) 23U/L (0-32) Alkaline Phosphatase 60U/L (25-165) Total Protein 6.9g/dL (6.4-8.4) Albumin 3.2g/dL (3.4-5.0) Prothrombin Time 11.5sec (8.1-12.5) Prothromb Time International Ratio 1.07ratio Discharge Medications Discharge Medications Calcium Carbonate/Vitamin D3 (Calcium 500 + Vit D Caplet) 1 Each Tablet 1 EACH PO DAILY (Reported) Cyanocobalamin (Vitamin B-12) (Vitamin B-12) 1,000 Mcg Tablet 1,000 MCG PO DAILY (Reported) Diltiazem ER (Diltiazem ER) 120 Mg Cap.er.12h 120 MG PO BID (Reported) Donepezil (Aricept) 5 Mg Tablet 10 MG PO HS (Reported) Fluticasone Propionate (Fluticasone Propionate Nasal) 16 Gm [place].susp 1 SPRAY NA BID (Reported) Furosemide (Furosemide) 40 Mg Tablet 40 MG PO BID (Reported) Levothyroxine (Levothyroxine) 200 Mcg Tablet 200 MG PO DAILY (Reported) Nitroglycerin SL (Nitroglycerin SL) 0.4 Mg Tab.subl 0.4 MG SL DAILY (Reported) Potassium Chloride ER (Klor-Con M10) 10 Meq Tablet 10 MEQ PO BID (Reported) Pravastatin (Pravastatin) 80 Mg Tablet 80 MG PO DAILY (Reported) Warfarin Sodium (Warfarin Sodium) 5 Mg Tablet 7.5 MG PO M,T,TH,F,SUN (Reported) Warfarin Sodium (Coumadin) 5 Mg Tablet 10 MG PO W,SAT (Reported) As needed Nitroglycerin SL (Nitroglycerin SL) 0.4 Mg Tab.subl 0.4 MG SL Q5MIN PRN PRN For Chest Pain (Reported) Tramadol (Tramadol) 50 Mg Tablet 50 MG PO Q6 PRN PRN For Pain (Reported) Additional med instructions Resume your usual medications, including your warfarin. Followup Plan Disposition: Home with home health care Discharge Diet: Low fat, Low Sodium Discharge Activity: No restrictions, Other (ambulate as tolerated.) Patient Instructions Your breathing will be improved if you ambulate or sit upright as much as possible. He should expect to have a mild cough, reduced appetite and low energy for several more days. Your antibiotics are complete. Your INR level has dropped below your goal of 2- 3. Should resume your usual dose of warfarin and have your INR checked within 1 week. Follow-up Provider: Dai Lovell MD Follow-up with PCP in: 1 week (call for a posthospitalization follow-up visit with INR check) Time spent 35 minutes copies to: Dai Lovell MD, Jeffrey W MD Jan 17, 2017 14:38
== END 2017-01-17 16:15 | disposition home health service (06) | DRG 193 ==
LOC: SED 12:38 → PCC 15:24
PROVIDERS: ADMIT Hospitalist; ATTEND Hospitalist
PROC: 5A09357 Assistance with Respiratory Ventilation, Less than 24 Consecutive Hours, Continuous Positive Airway Pressure (ICD-10-PCS; principal; 2017-01-11)
DX: J18.9 Pneumonia, unspecified organism (principal); J96.01 Acute respiratory failure with hypoxia; E87.2 Acidosis; I27.82 Chronic pulmonary embolism; Z79.01 Long term (current) use of anticoagulants; I10 Essential (primary) hypertension; E03.9 Hypothyroidism, unspecified; Z95.0 Presence of cardiac pacemaker; Z66 Do not resuscitate; I48.0 Paroxysmal atrial fibrillation